=== PATIENT | male | born 1970 | race Caucasian/White ===

== ENCOUNTER → 2019-02-27 | Emergency (ER) | payer OTHER ==
[~2019-02-27] VITALS: Ht 172.7 cm; Wt 59.9 kg
[~2019-02-27] MED LIST: DIAZEPAM5 MG PO; HYDROXYZINE HCL50 MG PO; IBUPROFEN IB200 MG PO; IBUPROFEN400 MG PO; KETOCONAZOLE15 GM TOP; LORAZEPAM1 MG PO; THIAMINE HCL50 MG PO
== END ==
LOC: ED 20:00
DX: S90.32XA Contusion of left foot, initial encounter (principal); F17.200 Nicotine dependence, unspecified, uncomplicated; W23.0XXA Caught, crushed, jammed, or pinched between moving objects, initial encounter
CPT/HCPCS: 73630; 99283

== ENCOUNTER 2019-07-15 08:21 | Emergency (ER) | payer OTHER ==
[~2019-07-15] VITALS: Ht 172.7 cm; Wt 59.9 kg
[2019-07-15] MEDS ORDERED: NORCO 7.5-3251 EACH PO (14:49)
[2019-07-16] MEDS ORDERED: OXYCODONE HCL5 MG PO (14:40)
== END 2019-07-15 15:20 | disposition home or self-care (01) ==
LOC: ED 08:21
DX: S42.302A Unspecified fracture of shaft of humerus, left arm, initial encounter for closed fracture (principal); F17.200 Nicotine dependence, unspecified, uncomplicated; Z71.6 Tobacco abuse counseling; X58.XXXA Exposure to other specified factors, initial encounter; Y99.0 Civilian activity done for income or pay
CPT/HCPCS: 73030; 73060; 96374; 96375; 96376; 99283-25; 99406; J1170; J2270; J2405

== ENCOUNTER 2019-07-20 08:45 | Day surgery (SDC) | payer OTHER ==
[~2019-07-20] VITALS: Ht 172.7 cm; Wt 59.9 kg
[~2019-07-20 08:45] MED LIST changes: +NORCO 7.5-3251 EACH PO; +OXYCODONE HCL5 MG PO
--- NOTE | 2019-07-20 11:57 | NUR ---
PT ALERT, ORIENTED AND SUPPORTED BY HIS WINNIE. FARHAD HOBBS MENTIONED THAT PT IS VERY ANXIOUS. I GAVE ENCOURAGEMENT, HAD GOOD VISIT. PT REQUESTED PRAYER. WILL FOLLOW NEEDED
[2019-07-20] MEDS ORDERED: OXYCODONE HCL5 MG PO (13:02)
--- NOTE | 2019-07-20 13:17 | NUR ---
07/20/19 1317 Rebecca Arnold 1309- PT ARRIVES TO PACU NONAROUSABLE TO NOXIOUS STIMULI WITH AN OPA IN PLACE. RESP EVEN AND UNLABORED. OXYGEN SAT MID TO HIGH 90'S ON RA.
--- NOTE | 2019-07-20 13:56 | NUR ---
PT RETURNS TO DS ROOM 12 FROM PACU. PT DENIES PAIN/NAUSEA. ICE WATER PROVIDED. SURGICAL SITES WNL. SHOULDER IMMOBLIZER AND CRYO CUFF IN PLACE. VSS. AT BEDSIDE. REPORT GIVEN TO PRIMARY RN ANJEL. CALL LIGHT WITHIN REACH
--- NOTE | 2019-07-20 14:35 | NUR ---
PT USES CALL LIGHT TO NOTIFY RN OF URGE TO VOID. IV SALINE LOCKED, CRYO CUFF AND SCD'S REMOVED. PT SITS AT SIDE OF BED, LEFT SHOULDER IMMOBILIZER TIGHTENED PRIOR TO STANDING. PT DENIES NAUSEA AND STATES, "IT IS KIND OF A HEAD GERMAIN" WHEN ASKED ABOUT DIZZINESS. PT ASSISTED TO BATHROOM, STEADY GAIT. PT ABLE TO VOID 500 MLS CONCENTRATED URINE WITH SPOUSE IN BATHROOM. PT BACK TO ROOM, SCD'S AND CRYO CUFF APPLIED. ICED WATER REFILLED AND CRACKERS PROVIDED. CALL LIGHT WITHIN REACH, SPOUSE AT BEDSIDE.
--- NOTE | 2019-07-20 14:56 | NUR ---
PT TOLERATES CRACKERS AND WATER WELL, DENIES ANY NAUSEA. PT STATES NO PAIN IN LEFT ARM AND THAT SHOULDER IMMOBILIZER "FEELS SO MUCH BETTER THAN OTHER BRACE." DC CRITERIA MET AT THIS TIME, PT DESIRES GOING HOME STATES, "I AM NOT BIG ON SITTING AROUND" AND IS ENCOURAGED TO TAKE IT EASY FOR REMAINDER OF DAY.
--- NOTE | 2019-07-20 15:25 | NUR ---
DC INSTRUCTIONS GIVEN IN PRESENCE OF PT AND SPOUSE, ALL QUESTIONS ADDRESSED. [facility] BY [facility]. EPPS. PT DRESSES SELF WITH HELP FROM SPOUSE AND OPENS CURTAIN WHEN FINISHED. IV REMOVED WNL. PT SPOUSE CARRIES CRYO CUFF AND DC INSTRUCTIONS WHILE PT IS WHEELED OUT TO MAIN ENTRANCE TO PERSONAL VEHICLE FROM RM 12.
--- NOTE | 2019-07-21 07:39 | OR ---
[facility] [address] [facility] [place], [place] [address] Signed DATE OF OPERATION: 07/20/2019 SURGEON: Kassandra Beckwith MD PREOPERATIVE DIAGNOSIS: Left humerus fracture, distal. POSTOPERATIVE DIAGNOSIS: Left humerus fracture, distal. PROCEDURE PERFORMED: Open reduction and internal fixation, left humerus with biopsy of bone and soft tissue. DEPUTY GRAND JURY: Angelique Gutierrez PA-C. Angelique was present and critical for all portions of procedure. ANESTHESIA: General. ESTIMATED BLOOD LOSS: 200 mL. SPECIMEN: Multiple soft tissue specimens were sent to Pathology. IMPLANTS: 7 x 260 Synthes IM alexys with 2 locking screws and 1 mm cable. BRIEF HISTORY: Esmer is a 48-year-old gentleman with history of lifting a slab of meat at work. He works at [employer] here in [facility]. When he went to put it down, his arm gave out and snapped. Radiographs at the ER showed a distal humerus fracture. There was some lucency in the fracture site and it was felt that this may represent a pathologic fracture. His preoperative workup with labs and chest, abdomen, and pelvis CT is negative, however. Risks, benefits, and alternatives of surgery were discussed with him. We discussed an open biopsy and IM rodding and he wished to proceed. DESCRIPTION OF PROCEDURE: Once consent was obtained, he was taken to the operating room. After adequate Electronically Signed By: KASSANDRA BECKWITH MD 07/21/19 0739 PATIENT NAME: ESMER MCCLOUD CANDICE OPERATIVE REPORT DATE OF : 74 REPORT #: [id number] PHYSICIAN: KASSANDRA BECKWITH MD PCP: NO PRIMARY CARE PHYSICIAN REPORT IS CONFIDENTIAL AND NOT TO BE RELEASED WITHOUT AUTHORIZATION [facility] [address] [place], [place] [address] Signed anesthesia, he was placed in a low beach chair position. All downside pressure points well padded. The left shoulder was prepped and draped in a standard sterile fashion. The fracture was identified on the image intensifier and a 2.5 inch incision was centered laterally over this, carried through skin and subcutaneous tissue. The plane between the biceps and triceps was then easily entered and the fracture was identified. Fracture hematoma was cleared away and the fracture was distracted and rotated. Several white soft pieces of tissue were found at the fracture site and these were removed from the anterior portion of the humerus, the rest superiorly. Multiple fragments were sent to Pathology for frozen section and permanent. Once this was accomplished, the fracture was reduced and held with a [place] bone clamp. The shoulder was then approached through a 1.5 cm incision just off the anterolateral corner of the acromion. Blunt dissection was taken down through the rotator cuff to the humerus. Under image intensifier guidance, a guide pin for the humeral alexys set was then advanced from the proximal humerus into the body of the shaft. This was over-reamed with a large reamer. The long guide alexys was then placed in the humerus and advanced to the fracture site and across down to it in distal center-center position. It was then over-reamed using the 8 mm reamer and had good chatter with selected 7 mm alexys. The humerus was measured to 260. The 260 alexys was then selected and irrigated and placed over the guide alexys and advanced to the fracture site and again under direct visualization was advanced across the fracture site down distally as far as we can get it. Once this was completed, the fracture was held in reduced position. The distal interlocking screw that was available was placed using the perfect circles technique through a percutaneous anterior incision. The other hole was right at the fracture site. I did not want to put a screw there, so we elected to put a 1 mm cable around the bone. Once this was accomplished, we tightened it using the and then crimped it and cut the end. I felt this was sufficient to manage his fracture. The proximal interlocking screw was then placed through a percutaneous drill guide and checked using image intensifier. Final radiographs showed good reduction and alexys length. All wounds were copiously irrigated with dilute iodine followed by normal saline, closed using 2-0 Monocryl and aurea. Wounds were dressed with Allevyn silver dressing and OpSite. He was awakened, taken to recovery room in satisfactory condition. All sponge, needle, and instrument counts were correct. Kassandra Beckwith MD BA/MODL /[id number] Electronically Signed By: KASSANDRA BECKWITH MD 07/21/19 0739 PATIENT NAME: ESMER MCCLOUD OPERATIVE REPORT DATE OF : 74 REPORT #: [id number] PHYSICIAN: KASSANDRA BECKWITH MD PCP: NO PRIMARY CARE PHYSICIAN REPORT IS CONFIDENTIAL AND NOT TO BE RELEASED WITHOUT AUTHORIZATION [address] [address] Signed Copies: ~ Electronically Signed By: KASSANDRA BECKWITH MD 07/21/19 0739 PATIENT NAME: ESMER MCCLOUD CANDICE OPERATIVE REPORT DATE OF : 74 REPORT #: [id number] PHYSICIAN: KASSANDRA BECKWITH MD PCP: NO PRIMARY CARE PHYSICIAN REPORT IS CONFIDENTIAL AND NOT TO BE RELEASED WITHOUT AUTHORIZATION
--- NOTE | 2019-08-11 11:54 | PATH ---
[facility] [address] [facility] [place], [place] [address] Signed THIS IS AN ADDENDUM REPORT SPECIMEN(S): A MID DISTAL HUMERUS SPECIMEN SOURCE: A. MID DISTAL HUMERUS CLINICAL HISTORY: Pain, fracture left upper arm. FROZEN SECTION DIAGNOSIS: Bone biopsy mid distal humerus: - Myxoid spindle cell neoplasm defer to permanents for final classification. (Dr. Castillo, 07-20-2019, 12:30 p.m.) Frozen section diagnoses called to Dr. Beckwith at 12:30 p.m.. AM (under the direct supervision of a pathologist) The Gross Description was prepared using a voice recognition system. The report was reviewed for accuracy; however, sound-alike word errors, addition and/or deletions may occur. If there is any question about this report, please contact Client Services. FINAL PATHOLOGIC DIAGNOSIS: Soft tissue, mid distal humerus, biopsy: - Intramuscular spindle cell proliferation with associated inflammation, pending final classification. - See Comment. COMMENT: Sections show a proliferation of plump spindled cells within the skeletal muscle, growing between the fibers are creating a "checkerboard" pattern. Some spindled cells display a ganglion-like appearance and prominent nucleoli. Acute and chronic inflammatory cells are associated with the proliferation. Mitotic figures are readily identified, but no atypical mitotic figures or tumor necrosis is present. A few fragments of uninvolved bone and areas of hemorrhage with fibrin are seen, which are favored to be a result of the recent bone fracture. Immunohistochemical stains (with appropriately staining controls) were performed. The spindled cells are positive for smooth muscle actin and negative for desmin, pancytokeratin, S100, and myogenin, supporting a myofibroblastic origin of the lesion. PATIENT NAME: ESMER MCCLOUD PATHOLOGY DATE OF : 74 REPORT #: [id number] PHYSICIAN: JAVID PATHOLOGY PCP: NO PRIMARY CARE PHYSICIAN REPORT IS CONFIDENTIAL AND NOT TO BE RELEASED WITHOUT AUTHORIZATION [facility] [address] [place], [place] [address] Signed The differential diagnosis includes proliferative myositis or other spindle cell proliferations. Due to the concomitant bone fracture and apparent uninvolvment of the bone by this lesion, this case has been sent for an outside review and opinion. An addendum will be issued once final classification is determined. NAL:cml:C NR MICROSCOPIC EXAMINATION: Histologic sections of all submitted blocks are examined by light microscopy. These findings, together with the gross examination, support the pathologic diagnosis. GROSS DESCRIPTION: The specimen, labeled "EVAN, bone biopsy mid distal humerus," is received fresh for frozen section diagnosis and consists of multiple fragments of calderon-red soft tissue, measuring 2.0 x 2.0 x 0.4 cm in aggregate. A portion of the specimen is placed in RPMI fixative for flow cytometry per Dr. Castillo. Cassette summary: (FS A1) frozen portion (A2) remainder of specimen ADDITIONAL NOTES: Immunohistochemical and/or in situ hybridization studies were performed on this case with the appropriate positive controls that react as expected. This test was developed and its performance characteristics determined by [facility]. It has not been cleared or approved by the U.S. Food and Drug Administration. The FDA has determined that such clearance or approval is not necessary. This test is used for clinical purposes. It should not be regarded as investigational or for research. [facility] is certified under the Clinical Laboratory Improvement Amendments of 1988 (CLIA) as qualified to perform high complexity clinical laboratory testing. PERFORMING LABORATORY: The frozen section was performed by [facility], [address] [facility] [address] [place] [id number] (Room Cooler Installer: Nj Beckwith MD; CLIA# [id number]).The technical component was performed by [facility], [address] [place] [id number] (Room Cooler Installer: Monica Degroot MD; CLIA# [id number]). PATIENT NAME: ESMER MCCLOUD PATHOLOGY DATE OF : 74 REPORT #: [id number] PHYSICIAN: JAVID CANTOR PCP: NO PRIMARY CARE PHYSICIAN REPORT IS CONFIDENTIAL AND NOT TO BE RELEASED WITHOUT AUTHORIZATION [facility] [address] [place], [place] [address] Signed [facility], [address] [facility] [address] [place] [address] (Room Cooler Installer: Nj Beckwith MD; CLIA# [id number]). REASON FOR ADDENDUM: To add revised Final Pathologic Diagnosis and Addendum Comment. 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 See Addendum Comment. 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 Please see the comment from Dr. Jeannie Berry below. "In completely agree with the diagnosis of proliferative myositis/reactive process. HE sections demonstrate skeletal muscle, fibroadipose tissue and rare fragments of bone with marked hemorrhage/fibrin, patchy ischemic-type necrosis, mixed acute and chronic inflammation, granulation tissue and reactive changes. Between the skeletal muscle fibers that are reactive is a population of plump spindled to stellate cells, some of which taken on a ganglion [id number] cytomorphology in association with edema and often inflammation. The spindle/stellate are consistent with reactive myofibroblasts/fibroblasts. The skeletal muscle shows reactive and atrophic changes. The following immunostains were available for my review, with the results in spindle cells as follows: - SMA: Positive (supports myofibroblastic nature) - Desmin: Negative (highlights background skeletal muscle) - Myogenin: Negative - S-100: Negative - AE1/AE3: Negative. Taken together, the features are that of a reactive myofibroblastic process consistent with proliferative myositis. Some histologic features demonstrate ischemic type changes as can be seen in ischemic fasciitis; both are reactive myofibroblastic proliferations often (1/3 of cases) associated with prior antecedent trauma as seen in this case. No evidence of neoplasm is present. The prior injury to the arm may be associated with and/or incited this reactive process." PATIENT NAME: ESMER MCCLOUD PATHOLOGY DATE OF : 74 REPORT #: [id number] PHYSICIAN: JAVID PATHOLOGY PCP: NO PRIMARY CARE PHYSICIAN REPORT IS CONFIDENTIAL AND NOT TO BE RELEASED WITHOUT AUTHORIZATION [place] [id number] [place], [place] [address] Signed Case seen by Jeannie Berry MD Pathologist Pathology, [facility] The results were discussed with Dr. Beckwith by Dr. Castillo on 06/13/2019. NAL:glc Diagnostician: Ivett Castillo MD Pathologist Electronically Signed 08/11/2019 Copies: ~ PATIENT NAME: ESMER MCCLOUD CANDICE PATHOLOGY DATE OF : 74 REPORT #: [id number] PHYSICIAN: JAVID PATHOLOGY PCP: NO PRIMARY CARE PHYSICIAN REPORT IS CONFIDENTIAL AND NOT TO BE RELEASED WITHOUT AUTHORIZATION
== END 2019-07-20 15:22 | disposition home or self-care (01) ==
LOC: DS 08:45 → OPS 08:45 → DS 14:30 → OPS 15:22
PROVIDERS: Specialist
PROC: 0PSG06Z Reposition Left Humeral Shaft with Intramedullary Internal Fixation Device, Open Approach (ICD-10-PCS; principal; 2019-07-20 13:15)
DX: D49.2 Neoplasm of unspecified behavior of bone, soft tissue, and skin (principal); M84.522A Pathological fracture in neoplastic disease, left humerus, initial encounter for fracture; F17.210 Nicotine dependence, cigarettes, uncomplicated; X58.XXXA Exposure to other specified factors, initial encounter
CPT/HCPCS: 01740; 64415; 73060; 76942; C1713; J0131; J0690; J1100; J1885; J2250; J2405; J2704; J2795; J3010; J7121

== ENCOUNTER 2020-05-28 15:33 | Emergency (ER) | payer SELFPAY ==
[~2020-05-28] VITALS: Ht 172.7 cm; Wt 59.9 kg
== END 2020-05-28 16:55 | disposition home or self-care (01) ==
LOC: ED 15:33
DX: S46.212A Strain of muscle, fascia and tendon of other parts of biceps, left arm, initial encounter (principal); X58.XXXA Exposure to other specified factors, initial encounter; F17.200 Nicotine dependence, unspecified, uncomplicated
CPT/HCPCS: 99283